=== PATIENT | female | born 1990 | race Caucasian/White ===

== ENCOUNTER 2016-11-28 16:22 | Emergency (ER) | payer OTHER ==
[2016-11-28 16:30] VITALS: TEMP 97.3; O2SAT 97
[2016-11-28] MEDS ORDERED: NS 1,000 ML IV ONE (16:37)
--- NOTE | 2016-11-28 16:50 | EDPHY ---
H & P Stated Complaint: Abd Pain HPI/ROS: CHIEF COMPLAINT: abdominal pain HISTORY OF PRESENT ILLNESS: 25 history of right upper quadrant abdominal pain. THis started abruptly while driving to dinner. [id number] pain. Worse when ambulating with palpation. Improved at rest. Does not radiate. Nausea but no vomiting. NO fever or chills. NO bloody stools or emesis. Also worse after attempting to eat, she has not had anything to eat since late last night. went to urgent care earlier today, they sent her here due to the possibility of needing ultrasound versus CT scan. She is resting comfortably at this time with mild pain. She has no medical pathology or diagnoses. No abdominal surgeries. NO other associated complaints or modifying factors. REVIEW OF SYSTEMS: Ten systems reviewed and are negative unless otherwise noted in the HPI EXAMINATION General Appearance: Alert, no distress Head: normocephalic, atraumatic Eyes: Pupils equal and round, no conjunctival pallor or injection ENT, Mouth: Mucous membranes moist . Uvula midline. NO erythema or edema Neck: Normal inspection, supple, non-tender. Respiratory: Lungs are clear to auscultation. no wheezing rhonchi or crackles Cardiovascular: Regular rate and rhythm. no murmur. Pulses intact distally Gastrointestinal: Abdomen is soft but tender palpation in the right upper quadrant greater than the epigastrium. NO tenderness in the lower quadrants. NO tympany. No rigidity. Nonacute abdomen. Neurological: A&O, nonfocal, normal gait Skin: Warm and dry, no rash Extremities: Nontender, no pedal edema Psychiatric: Mood and affect normal DIFFERENTIAL DIAGNOSES: Including but not limited to Cholecystitis, cholelithiasis, cholecystitis, pancreatitis, enteritis, colitis, abdominal pain NOS MDM: 4:48 p.m. right upper quadrant abdominal pain with an exam that is most consistent with gallbladder etiology. SHe has stable vital signs. NO vomiting. NO abdominal diagnosis in the past. Ultrasound, laboratory studies and IV fluids have been ordered. She is declining pain medication at this time. She is resting comfortably in no acute distress 5:30 p.m. I have re-evaluated the patient. She is resting comfortably and still does not want any pain medication. Ultrasound is at bedside at this time. 6:10 p.m. I have re-evaluated the patient. She is feeling better but still has pain in the epigastrium. Labs reveal mildly elevated lipase but otherwise within normal limits. Radiology does contacted me informed that the gallbladder and pancreas are without abnormality. Given her tenderness I will obtain a CT scan to rule out any other abnormality and possibility of pancreatitis. She is comfortable with this plan. 7:10 p.m. I have re-evaluated the patient. I have made her aware of the radiology report was read as normal on the CT of abdomen pelvis. She is feeling significantly better. As we discussed this again, there is a chance that the patient has passed a gallstone. Lipase is minimally elevated but she has significantly better at this time. Discharge home with pain medication, nausea medicine and instructions to follow up with primary care physician as discussed. Patient is comfortable with this plan and discharged home in stable condition. SUPERVISION: Shared evaluation. Source: Patient Exam Limitations: No limitations - Personal History LMP (Females 10-55): Extended Cycle BCP/Inj Current Tetanus Diphtheria and Acellular Pertussis (TDAP): Yes Tetanus Vaccine Date: within 10 years - Medical/Surgical History Hx Asthma: No Hx Chronic Respiratory Disease: No Hx Diabetes: No Hx Cardiac Disease: No Hx Renal Disease: No Hx Cirrhosis: No Hx Alcoholism: No Hx HIV/AIDS: No Hx Splenectomy or Spleen Trauma: No Other PMH: Migraines - Social History Smoking Status: Never smoked Constitutional: Initial Vital Signs Temperature (C) 97.3 F 11/28/16 16:27 Heart Rate 77 11/28/16 16:27 Respiratory Rate 16 11/28/16 16:27 Blood Pressure 131/76 H 11/28/16 16:27 O2 Sat (%) 97 11/28/16 16:27 O2 Delivery Mode Room Air Allergies/Adverse Reactions: No Known Allergies Allergy (Unverified 11/28/16 16:26) Home Medications: Medication Instructions Recorded Hydrocodone/Acetaminophen 1 - 2 each PO Q4H PRN #20 tablet 11/28/16 [Hydrocodon-Acetaminoph 7.5-325] Ondansetron Odt [Zofran Odt 4 mg 4 mg PO Q4 PRN #12 tab 11/28/16 (*)] Sucralfate [Carafate 1 GM (*)] 1 gm PO ACHS PRN #12 tab 11/28/16 Medical Decision Making - Data Points Laboratory Results: Laboratory Results 11/28/16 16:50 11/28/16 16:50 11/28/16 16:50 WBC 7.27 10^3/uL (3.80-9.50) RBC 5.03 10^6/uL (4.18-5.33) Hgb 15.9 g/dL (12.6-16.3) Hct 46.7 % (38.0-47.0) MCV 92.8 fL (81.5-99.8) MCH 31.6 pg (27.9-34.1) MCHC 34.0 g/dL (32.4-36.7) RDW 12.5 % (11.5-15.2) Plt Count 302 10^3/uL (150-400) MPV 9.2 fL (8.7-11.7) Neut % (Auto) 40.3 % (39.3-74.2) Lymph % (Auto) 50.3 H % (15.0-45.0) [place] % (Auto) 7.4 % (4.5-13.0) Eos % (Auto) 1.0 % (0.6-7.6) Baso % (Auto) 0.7 % (0.3-1.7) Nucleat RBC Rel Count 0.0 % (0.0-0.2) Absolute Neuts (auto) 2.93 10^3/uL (1.70-6.50) Absolute Lymphs (auto) 3.66 H 10^3/uL (1.00-3.00) Absolute Monos (auto) 0.54 10^3/uL (0.30-0.80) Absolute Eos (auto) 0.07 10^3/uL (0.03-0.40) Absolute Basos (auto) 0.05 10^3/uL (0.02-0.10) Absolute Nucleated RBC 0.00 10^3/uL (0-0.01) Immature Gran % 0.3 % (0.0-1.1) Immature Gran # 0.02 10^3/uL (0.00-0.10) Sodium 144 mEq/L (134-144) Potassium 3.7 mEq/L (3.5-5.2) Chloride 102 mEq/L (97-110) Carbon Dioxide 26 mEq/l (22-31) Anion Gap 16 mEq/L (8-16) BUN 10 mg/dL (7-23) Creatinine 0.8 mg/dL (0.6-1.0) Estimated GFR > 60 Glucose 88 mg/dL (70-100) Calcium 9.7 mg/dL (8.5-10.4) Total Bilirubin 0.9 mg/dL (0.1-1.4) Conjugated Bilirubin 0.7 H mg/dL (0.0-0.5) Unconjugated Bilirubin 0.2 mg/dL (0.0-1.1) AST 23 IU/L (14-46) ALT 30 IU/L (9-52) Alkaline Phosphatase 52 IU/L (38-126) Total Protein 8.7 H g/dL (6.3-8.2) Albumin 5.2 H g/dL (3.5-5.0) Lipase 305.0 H IU/L (23-300) Beta HCG, Qual NEGATIVE Medications Given: Discontinued Medications Sodium Chloride (Ns) 1,000 mls @ 0 mls/hr IV ONCE ONE PRN Reason: Wide Open Stop: 11/28/16 16:38 Last Admin: 11/28/16 16:50 Dose: 1,000 mls Departure - Departure Disposition: Home, Routine, Self-Care Clinical Impression: Abdominal pain Qualifiers: Qualifier Code: (R10.10) Upper abdominal pain, unspecified Condition: Good Instructions: Acute Abdominal Pain (ED) Additional Instructions: Follow-up with primary care physician. Return to the ER for worsening pain, intractable vomiting or fever Referrals: NONE *PRIMARY CARE P,. [Primary Care Provider] - As per Instructions Marty Lopez MD [Medical Doctor] - As per Instructions Prescriptions: Sucralfate [Carafate 1 GM (*)] 1 gm PO ACHS PRN #12 tab PRN Reason: Pain, Mild Hydrocodone/Acetaminophen [Hydrocodon-Acetaminoph 7.5-325] 1 - 2 each PO Q4H PRN #20 tablet PRN Reason: Pain, Moderate Ondansetron Odt [Zofran Odt 4 mg (*)] 4 mg PO Q4 PRN #12 tab PRN Reason: Nausea/Vomiting, Use 1st
[2016-11-28 17:02] LABS: % IMMATURE GRANULYOCYTES 0.3 % (0.0-1.1); ABSOLUTE IMMATURE GRANULOCYTES 0.02 10^3/uL (0.00-0.10); ADD DIFF? NO; ADD MORPH? NO; ADD SCAN? NO; ATYPICAL LYMPHOCYTE FLAG 20 (0-99); FRAGMENT RBC FLAG 0 (0-99); HEMATOCRIT 46.7 % (38.0-47.0); HEMOGLOBIN 15.9 g/dL (12.6-16.3); LEFT SHIFT FLG 0 (0-99); LIPEMIA HEMOLYSIS FLAG 90 (0-99); MEAN CELL HEMOGLOBIN 31.6 pg (27.9-34.1); MEAN CELL VOLUME 92.8 fL (81.5-99.8); MEAN PLATELET VOLUME 9.2 fL (8.7-11.7); PLATELET CLUMPS FLAG 0 (0-99); PLATELET COUNT 302 10^3/uL (150-400); RED BLOOD CELL COUNT 5.03 10^6/uL (4.18-5.33); RED CELL DISTRIBUTION WIDTH 12.5 % (11.5-15.2)
[2016-11-28 17:14] LABS: ALANINE AMINOTRANSFERASE 30 IU/L (9-52); ALBUMIN 5.2 g/dL (3.5-5.0); ALKALINE PHOSPHATASE 52 IU/L (38-126); ANION GAP 16 mEq/L (8-16); ASPARTATE AMINOTRANSFERASE 23 IU/L (14-46); BILIRUBIN,TOTAL 0.9 mg/dL (0.1-1.4); BILIRUBIN-CONJUGATED 0.7 mg/dL (0.0-0.5); BILIRUBIN-UNCONJUGATED 0.2 mg/dL (0.0-1.1); CALCIUM 9.7 mg/dL (8.5-10.4); CARBON DIOXIDE 26 mEq/l (22-31); CHLORIDE 102 mEq/L (97-110); CREATININE 0.8 mg/dL (0.6-1.0); GLOMERULAR FILTRATION RATE > 60; GLUCOSE 88 mg/dL (70-100); POTASSIUM 3.7 mEq/L (3.5-5.2); SODIUM 144 mEq/L (134-144); TOTAL PROTEIN 8.7 g/dL (6.3-8.2)
--- NOTE | 2016-11-28 18:09 | US ---
Limited Right Upper Quadrant Ultrasound History: Right upper quadrant pain. Comparison: None available. Findings: The liver has normal echotexture and contour. There is no intrahepatic biliary dilatation. The common bile duct measures 2 mm and is normal. The gallbladder is normal. The right kidney measure s 11.1 cm and has normal echotexture and contour without hydronephrosis. The visible aorta is normal caliber . The visible portions of the pancreas are normal with limited visualization of the pancreat ic head and tail. Impression: Normal right upper quadrant ultrasound. Findings discussed with Fernando Daly 11/28/2016 at 18:06 hours.
[2016-11-28] MEDS ORDERED: IOPAMIDOL (ISOVUE-300) 100 ML BTL IV ONE (18:18)
--- NOTE | 2016-11-28 19:02 | CT ---
CT Abdomen and Pelvis With Contrast History: Epigastric pain. Comparison: Abdominal ultrasound same day at 1732 hours. Technique: Axial contrast-enhanced images were obtained through the abdomen and pelvis following the uneventful administration of 90 mL Isovue-300 intravenous contrast. Creatinine is 0.8. Dose reduction techniques were utilized. Findings: Abdomen: The lung bases are clear. Heart size is normal. The liver, gallbladder, spleen, pancreas, left adrenal, and kidneys are normal. Right adrenal calcifi cation is noted with normal contour of the right adrenal gland. Moderate stool is present in the colon. The colon and small bowel are normal caliber without evidence of obstruction. The appendix is not visible. There is no free fluid or air. The aorta is normal caliber . The IVC, portal, splenic, and superior mesenteric veins are patent. No pathologically enlarged lymph nodes are identified. The bones are normal. Pelvis: The bladder is distended but otherwise normal. Uterine contour is grossly normal. No adnexal masses are identified. There is trace free fluid. No aggressive osseous lesions are identified. Impression: 1. No visible etiology for the patient's symptoms. 2. Moderate stool in the proximal colon. 3. Adrenal calcification, which could be related to previous trauma or other etiology. Findings discussed with Fernando Daly 11/28/2016 at 18:47 hours.
[2016-11-28] MEDS ORDERED: HYDROCOD/APAP 5/325 PREPACK#6 BTL TAKEHOME ONE (19:15)
[2016-11-28 19:38] VITALS: BP 114/71; PULSE 68; RESP 14
== END 2016-11-28 19:36 | disposition home or self-care (01) ==
DX: R10.11 Right upper quadrant pain (principal)
CPT/HCPCS: Q9967